=== PATIENT | female | born 1955 | race Caucasian/White ===

== ENCOUNTER → 2017-10-17 | Day surgery (SDC) | payer OTHER ==
[~2017-10-17] MED LIST: ARMOUR THYROID60 MG PO; BENICAR HCT 201 EACH PO; CYMBALTA30 MG PO; FENTANYL CITRATE/PF 100MCG/2 ML INJ ONE; MIDAZOLAM HCL 2 MG/2 ML VIAL ONE; OR PHACO EYE KIT ONE; PREOP PHACO EYE KIT ONE; PROGESTERONE100 MG PO; TOVIAZ8 MG PO
== END | disposition home or self-care (01) ==
LOC: OR 09:50
PROVIDERS: ATTEND Ophthalmology
DX: H25.11 Age-related nuclear cataract, right eye (principal); I10 Essential (primary) hypertension; E03.9 Hypothyroidism, unspecified; K21.9 Gastro-esophageal reflux disease without esophagitis; F41.8 Other specified anxiety disorders; Z68.39 Body mass index [BMI] 39.0-39.9, adult; Z87.01 Personal history of pneumonia (recurrent)
CPT/HCPCS: 66984; J2250; V2632

== ENCOUNTER → 2017-10-31 | Day surgery (SDC) | payer OTHER ==
[~2017-10-31] MED LIST changes: -OR PHACO EYE KIT ONE; -PREOP PHACO EYE KIT ONE
== END | disposition home or self-care (01) ==
LOC: OR 12:12
PROVIDERS: ATTEND Ophthalmology
DX: H25.12 Age-related nuclear cataract, left eye (principal); I10 Essential (primary) hypertension; E03.9 Hypothyroidism, unspecified; N32.81 Overactive bladder; E66.01 Morbid (severe) obesity due to excess calories; Z68.39 Body mass index [BMI] 39.0-39.9, adult; F41.8 Other specified anxiety disorders
CPT/HCPCS: 66984; J2250

== ENCOUNTER 2021-07-12 14:23 | Inpatient (IN) | payer MEDICARE, OTHER ==
[~2021-07-12] VITALS: Ht 172.7 cm; Wt 102.1 kg
[~2021-07-12 14:23] MED LIST changes: -FENTANYL CITRATE/PF 100MCG/2 ML INJ ONE; -MIDAZOLAM HCL 2 MG/2 ML VIAL ONE
[2021-07-12 15:30] LABS: BASOPHILS # (AUTO) 0.1 (0.0-0.1); BASOPHILS % 0.4 % (0.0-1.0); EOSINOPHILS # (AUTO) 0.2 (0.0-0.4); EOSINOPHILS % 1.1 % (0.0-6.0); HEMATOCRIT 41.4 % (34.2-44.1); HEMOGLOBIN 13.1 g/dL (12.0-16.0); LYMPHOCYTES # (AUTO) 1.9 (1.0-3.2); LYMPHOCYTES % 13.4 % (18.0-39.1); MEAN CORPUSCULAR HEMOGLOBIN 25.8 pg (28-32); MEAN CORPUSCULAR HGB CONC 31.6 g/dL (31-35); MEAN CORPUSCULAR VOLUME 81.5 fL (81-99); MONOCYTES # (AUTO) 1.1 (0.2-0.8); MONOCYTES % 7.6 % (4.4-11.3); NEUTROPHILS # (AUTO) 10.8 (2.1-6.9); NEUTROPHILS % 77.2 % (38.7-80.0); PLATELET COUNT 353 x10e3/uL (140-360); RED BLOOD COUNT 5.08 x10e6/uL (3.6-5.1); RED CELL DISTRIBUTION WIDTH 14.6 % (11.7-14.4)
[2021-07-12 15:33] LABS: CLARITY,URINE SL CLOUDY (CLEAR); COLOR,URINE STRAW (YELLOW); KETONES,URINE NEGATIVE (NEGATIVE); LEUKOCYTE ESTERASE ,URINE SMALL (NEGATIVE); NITRITE,URINE NEGATIVE (NEGATIVE); PROTEIN,URINE DIPSTICK NEGATIVE (NEGATIVE); URINE UROBILINOGEN 1 mg/dL (0.2 - 1)
[2021-07-12 15:49] LABS: BACTERIA,URINE FEW /HPF; EPITHELIAL CELLS,URINE MODERATE /LPF; RENAL EPITHELIAL CELLS,URINE RARE; WBC,URINE (MAN) 0-5 /HPF (0-5)
[2021-07-12 15:51] LABS: ALBUMIN 3.9 g/dL (3.5-5.0); ALBUMIN/GLOBULIN RATIO 1.1 (0.8-2.0); ANION GAP 11.9 mmol/L (8-16); CALCIUM 9.9 mg/dL (8.4-10.2); CREATININE, SERUM 0.69 mg/dL (0.57-1.11)
[2021-07-12 15:55] LABS: POTASSIUM 2.9 mmol/L (3.5-5.1)
[2021-07-12 16:02] LABS: CREATINE KINASE MB 0.5 ng/mL (0-5.0)
[2021-07-12] MEDS ORDERED: ONDANSETRON HCL INJ 2MG/ML 2ML 2 MG/ML VIAL IV STA (16:10)
[2021-07-12] MEDS ORDERED: PIPERACILLIN/TAZOBACTAM 3.375 GM in SODIUM CHLORIDE 0.9% 50ML 50 ML IV SCH (16:15)
[2021-07-12] MEDS ORDERED: Morphine 4mg Syringe 4 MG/ML INJ IV ONE (16:15)
[2021-07-12] MEDS ORDERED: IOPAMIDOL 370 MG/ML 200 ML INFUS..BTL INJ ONE (16:26)
[2021-07-12] MEDS ORDERED: SODIUM CHLORIDE 0.9% 50ML 50 ML ONE (16:26)
[2021-07-12] MEDS ORDERED: POTASSIUM CHLORIDE 10MEQ/100ML 100 ML IV ONE (16:30)
[2021-07-12] MEDS: SODIUM CHLORIDE 0.9% 1000ML 1,000 ML IV SCH (16:41)
[2021-07-12] MEDS ORDERED: HEPARIN SOD (PORCINE) 5,000 UNIT/ML VIAL IV ONE (17:30)
[2021-07-12 17:34] LABS: INR 0.91
[2021-07-12 17:35] LABS: PARTIAL THROMBOPLASTIN TIME 26.6 seconds (23.8-35.5)
[2021-07-12] MEDS ORDERED: KCL 20MEQ/.9 SOD CHL 1,000 ML IV ONE (17:45)
[2021-07-12] MEDS ORDERED: HEPARIN 25,000 UNIT DRIP IV ONE (18:00)
[2021-07-12] MEDS: HEPARIN 25,000 UNIT 1,400 UNIT in DEXTROSE 5% 250ML 250 ML IV SCH (18:03)
[2021-07-12] MEDS ORDERED: ZOLPIDEM TARTRATE 10 MG TAB PO ONE (20:00)
[2021-07-12] MEDS ORDERED: ZOLPIDEM TARTRATE 5 MG TAB PO ONE (20:30)
[2021-07-12 22:55] VITALS: BP 139/89
[2021-07-12 23:00] VITALS: BP 139/89
[2021-07-12] MEDS ORDERED: BUPROPION HCL100 MG PO (23:14)
[2021-07-12] MEDS ORDERED: PRILOSEC OTC20 MG (23:14)
[2021-07-13] VITALS: BP 139/89
[2021-07-13] MEDS: Morphine 4mg Syringe 4 MG/ML INJ IV PRN ×5 (01:00→21:06)
[2021-07-13] MEDS: ONDANSETRON HCL INJ 2MG/ML 2ML 2 MG/ML VIAL IV PRN ×4 (01:00→17:23)
[2021-07-13 04:00] VITALS: BP 154/83
[2021-07-13 05:50] LABS: BASOPHILS # (AUTO) 0.1 (0.0-0.1); BASOPHILS % 0.5 % (0.0-1.0); EOSINOPHILS # (AUTO) 0.2 (0.0-0.4); HEMATOCRIT 37.2 % (34.2-44.1); HEMOGLOBIN 11.6 g/dL (12.0-16.0); LYMPHOCYTES # (AUTO) 1.9 (1.0-3.2); LYMPHOCYTES % 17.1 % (18.0-39.1); MEAN CORPUSCULAR HEMOGLOBIN 25.8 pg (28-32); MEAN CORPUSCULAR HGB CONC 31.2 g/dL (31-35); MEAN CORPUSCULAR VOLUME 82.7 fL (81-99); MONOCYTES # (AUTO) 0.9 (0.2-0.8); MONOCYTES % 8.2 % (4.4-11.3); NEUTROPHILS # (AUTO) 7.8 (2.1-6.9); NEUTROPHILS % 71.8 % (38.7-80.0); PLATELET COUNT 214 x10e3/uL (140-360); RED CELL DISTRIBUTION WIDTH 14.9 % (11.7-14.4)
[2021-07-13] MEDS: SODIUM CHLORIDE 0.9% 1000ML 1,000 ML IV SCH ×3 (06:38→22:15)
[2021-07-13 06:40] LABS: ALBUMIN 3.1 g/dL (3.5-5.0); ANION GAP 11.1 mmol/L (8-16); CALCIUM 8.6 mg/dL (8.4-10.2); CREATININE, SERUM 0.63 mg/dL (0.57-1.11); POTASSIUM 3.1 mmol/L (3.5-5.1)
[2021-07-13 07:36] LABS: MAGNESIUM 1.9 MG/DL (1.3-2.1); PHOSPHORUS 3.8 MG/DL (2.3-4.7)
[2021-07-13 09:06] VITALS: BP 157/93
[2021-07-13] MEDS ORDERED: POTASSIUM CHLORIDE 20 MEQ TAB CR PO ONE (10:15)
[2021-07-13] MEDS ORDERED: HYDROCHLOROTHIAZIDE PO SCH (12:00)
[2021-07-13] MEDS ORDERED: [UNRECOGNIZED DRUG - OTHER] PO SCH (12:00)
[2021-07-13] MEDS ORDERED: OLMESARTAN PO SCH (12:00)
[2021-07-13 12:22] VITALS: BP 159/93
[2021-07-13] MEDS: OLMESARTAN 20 MG TAB PO SCH (12:32)
[2021-07-13] MEDS: HYDROCHLOROTHIAZIDE 25 MG TAB PO SCH (12:35)
[2021-07-13] MEDS: HEPARIN 25,000 UNIT 1,400 UNIT in DEXTROSE 5% 250ML 250 ML IV SCH (14:36)
[2021-07-13] MEDS ORDERED: HEPARIN 25,000 UNIT DRIP IV ONE ×3 (14:43→14:44)
[2021-07-13 16:52] VITALS: BP 155/96
[2021-07-13] MEDS ORDERED: ACETAMINOPHEN 325 MG TAB PO PRN (18:00)
[2021-07-13 20:00] VITALS: BP 160/99
[2021-07-13] MEDS ORDERED: PROMETHAZINE 12.5MG/ NACL 0.9% 12.5 MG/50 ML BAG IV PRN (21:00)
[2021-07-13] MEDS ORDERED: ZOLPIDEM TARTRATE 10 MG TAB PO PRN (21:00)
[2021-07-13] MEDS ORDERED: ACETAMIN/BUTALBITAL/CAFFEINE TAB PO ONE (21:00)
[2021-07-13] MEDS ORDERED: PROGESTERONE PO SCH (21:00)
[2021-07-14 04:00] VITALS: BP 149/90
[2021-07-14] MEDS ORDERED: THYROID 60 MG TAB PO SCH (06:00)
[2021-07-14 06:12] LABS: BASOPHILS # (AUTO) 0.1 (0.0-0.1); BASOPHILS % 0.6 % (0.0-1.0); EOSINOPHILS # (AUTO) 0.3 (0.0-0.4); EOSINOPHILS % 3.5 % (0.0-6.0); HEMATOCRIT 36.1 % (34.2-44.1); HEMOGLOBIN 11.2 g/dL (12.0-16.0); LYMPHOCYTES # (AUTO) 1.8 (1.0-3.2); LYMPHOCYTES % 19.6 % (18.0-39.1); MEAN CORPUSCULAR HEMOGLOBIN 25.4 pg (28-32); MEAN CORPUSCULAR VOLUME 81.9 fL (81-99); MONOCYTES # (AUTO) 0.8 (0.2-0.8); MONOCYTES % 8.8 % (4.4-11.3); NEUTROPHILS # (AUTO) 6.1 (2.1-6.9); NEUTROPHILS % 66.9 % (38.7-80.0); PLATELET COUNT 219 x10e3/uL (140-360); RED BLOOD COUNT 4.41 x10e6/uL (3.6-5.1); RED CELL DISTRIBUTION WIDTH 14.8 % (11.7-14.4)
[2021-07-14 06:36] LABS: ANION GAP 9.8 mmol/L (8-16); BLOOD UREA NITROGEN < 5 mg/dL (7-26); BUN/CREATININE RATIO 8 (6-25); CALCIUM 8.9 mg/dL (8.4-10.2); CARBON DIOXIDE 28 mmol/L (22-29); CHLORIDE 105 mmol/L (98-107); CREATININE, SERUM 0.59 mg/dL (0.57-1.11); EST GLOMERULAR FILTRATION RATE 102 ML/MIN (60-); GLUCOSE 93 mg/dL (74-118); MAGNESIUM 1.8 MG/DL (1.3-2.1); PHOSPHORUS 2.6 MG/DL (2.3-4.7); SODIUM 140 mmol/L (136-145)
[2021-07-14 06:37] LABS: POTASSIUM 2.8 mmol/L (3.5-5.1)
[2021-07-14 08:06] VITALS: BP 150/105
[2021-07-14 08:08] VITALS: BP 150/105
[2021-07-14] MEDS: SODIUM CHLORIDE 0.9% 1000ML 1,000 ML IV SCH (08:28)
[2021-07-14] MEDS: ONDANSETRON HCL INJ 2MG/ML 2ML 2 MG/ML VIAL IV PRN (08:31)
[2021-07-14] MEDS: Morphine 4mg Syringe 4 MG/ML INJ IV PRN (08:31)
[2021-07-14] MEDS: HYDROCHLOROTHIAZIDE 25 MG TAB PO SCH (09:00)
[2021-07-14] MEDS: OLMESARTAN 20 MG TAB PO SCH (09:00)
[2021-07-14] MEDS ORDERED: BUPROPION HCL 150 MG TABCR PO SCH (09:00)
[2021-07-14] MEDS ORDERED: POTASSIUM CHLORIDE 20 MEQ TAB CR PO ONE (10:00)
[2021-07-14] MEDS ORDERED: POTASSIUM CHLORIDE 20MEQ/100ML 100 ML IV ONE (11:00)
[2021-07-14 11:25] VITALS: BP 153/103
[2021-07-14] MEDS: HEPARIN 25,000 UNIT 1,400 UNIT in DEXTROSE 5% 250ML 250 ML IV SCH (11:37)
== END 2021-07-14 12:05 | disposition left against medical advice (07) | DRG 435 ==
LOC: ER 15:25 → ERHOLD 17:41 → MED/SURG 22:37
PROVIDERS: ADMIT Internal Medicine; ATTEND Internal Medicine
DX: C25.9 Malignant neoplasm of pancreas, unspecified (principal); I26.93 Single subsegmental thrombotic pulmonary embolism without acute cor pulmonale; C78.6 Secondary malignant neoplasm of retroperitoneum and peritoneum; I10 Essential (primary) hypertension; E87.6 Hypokalemia; F32.A Depression, unspecified; Z53.29 Procedure and treatment not carried out because of patient's decision for other reasons; Z20.822 Contact with and (suspected) exposure to COVID-19; F41.9 Anxiety disorder, unspecified
CPT/HCPCS: 36415; 74177; 80048; 80053; 81001; 82378; 82550; 82553; 83605; 83690; 83735; 84100; 84484; 85025; 85610; 85730; 86301; 87040; 87086; 93306; 94799; 99285; J1644; J2270; J2405; J2543; J2550; J3480; J7030; Q9967; U0002